=== PATIENT | female | born 1970 | race Caucasian/White ===

== ENCOUNTER 2016-04-02 17:09 | Emergency (ER) | payer BC ==
[~2016-04-02] VITALS: Ht 162.6 cm; Wt 63.8 kg
[2016-04-02 17:33] LABS: MCH 32.9 PG (29.0-34.0); MCHC 34.3 G/DL (30.0-36.0); MCV 95.9 FL (83-99); MEAN PLAT.VOLUME 9.6 uM^3 (9.5-12.4); PLATELET COUNT 220 K/uL (156-360); RBC DIS.WIDTH-CV 12.4 % (11.8-14.6); RBC DIS.WIDTH-SD 42.1 % (39-53); RED BLOOD COUNT 4.17 M/uL (3.80-5.20); WHITE BLOOD COUNT 7.8 K/uL (4.1-10.2)
[2016-04-02 17:41] LABS: CHLORIDE 104 mEq/L (99-109); POTASSIUM 3.6 mEq/L (3.7-5.4); SODIUM 142 mEq/L (136-147)
[2016-04-02 17:43] LABS: GLUCOSE 88 mg/dL (70-99)
[2016-04-02 17:44] LABS: ANION GAP 14 MEQ/L (2-14)
[2016-04-02 17:45] LABS: TOTAL BILIRUBIN 0.3 mg/dL (0.0-1.0)
[2016-04-02 17:46] LABS: ALKALINE PHOSPHATASE 107 IU/L (3-129); SERUM ETHYL ALCOHOL < 10 mg/dL
[2016-04-02 17:47] LABS: GFR ESTIMATE (CALCULATED) > 59 mL/min/
[2016-04-02 17:48] LABS: UREA NITROGEN (BUN) 13 mg/dL (9-23)
[2016-04-02 18:35] LABS: ADD MIUA? YES; BILIRUBIN NEGATIVE; BLOOD MODERATE; COLOR YELLOW ((YELLOW)); GLUCOSE (STRIP) NEGATIVE; KETONES 5; LEUKOCYTES NEGATIVE; NITRITE NEGATIVE; PROTEIN (STRIP) 30; SPECIFIC GRAVITY 1.023 (1.000-1.030); UROBILINOGEN 0.2 MG/DL (0.2-1.0)
[2016-04-02 18:41] LABS: BACTERIA NONE SEEN /HPF; EPITHELIAL CELLS RARE /HPF; HYALINE CASTS 0-5 /LPF; MUCUS 3+ /LPF; RED BLOOD CELLS 0-5 /HPF (0-5); WHITE BLOOD CELLS 0-5 /HPF (0-5)
[2016-04-02 18:58] LABS: AMPHETAMINE NEGATIVE (500 ng/mL); BARBITURATES NEGATIVE (200 ng/mL); BENZODIAZEPINES NEGATIVE (150 ng/mL); COCAINE NEGATIVE (150 ng/mL); INTERNAL CONTROLS VALID? YES; METHADONE NEGATIVE (200 ng/mL); METHAMPHETAMINE NEGATIVE (500 ng/mL); OPIATES (MORPHINE) NEGATIVE (100 ng/mL); OXYCODONE NEGATIVE (100 ng/mL); PHENCYCLIDINE NEGATIVE (25 ng/mL); PROPOXYPHENE NEGATIVE (300 ng/mL); THC CANNABINOIDS NEGATIVE (50 ng/mL); TRICYCLIC ANTIDEPRESSANTS NEGATIVE (300 ng/mL)
[2016-04-02] MEDS ORDERED: ZOFRAN ODT4 MG PO (21:06)
[2016-04-02] MEDS ORDERED: BENTYL20 MG PO (21:06)
[2016-04-02 21:31] VITALS: BP 121/64
[2016-04-03 11:06] LABS: HBSG INDEX 0.14
[2016-04-03 11:07] LABS: HPCA INDEX 0.79
[2016-04-03 11:08] LABS: ANTI-HEPATITIS A VIRUS (IGM) Nonreactive; ANTI-HEPATITIS B CORE (IGM) Nonreactive; HAV INDEX 0.14; HBC IgM INDEX 0.08
== END 2016-04-02 21:32 | disposition home or self-care (01) ==
LOC: EME 17:09
PROVIDERS: Physician Assistant
DX: R11.2 Nausea with vomiting, unspecified (principal); E86.0 Dehydration; E87.6 Hypokalemia; R79.89 Other specified abnormal findings of blood chemistry; I10 Essential (primary) hypertension
CPT/HCPCS: 80053; 80074; 81003; 85027; 99281; 99284; G0480; J2405; J7030

== ENCOUNTER 2017-07-10 02:39 | Emergency (ER) | payer SELFPAY ==
[~2017-07-10] VITALS: Ht 162.6 cm; Wt 62.9 kg
[~2017-07-10 02:39] MED LIST: BENTYL20 MG PO; ZOFRAN ODT4 MG PO
[2017-07-10 03:03] LABS: APPEARANCE CLEAR ((CLEAR)); BILIRUBIN NEGATIVE; BLOOD SMALL; COLOR STRAW ((YELLOW)); GLUCOSE (STRIP) NEGATIVE; KETONES 5; LEUKOCYTES NEGATIVE; NITRITE NEGATIVE; PROTEIN (STRIP) 30; SPECIFIC GRAVITY 1.013 (1.000-1.030); UROBILINOGEN 0.2 MG/DL (0.2-1.0)
[2017-07-10 03:04] LABS: BACTERIA RARE /HPF; EPITHELIAL CELLS RARE /HPF; MUCUS NONE SEEN /LPF; RED BLOOD CELLS 0-5 /HPF (0-5); UCUL ADDED? NO; WHITE BLOOD CELLS 0-5 /HPF (0-5)
[2017-07-10 03:29] LABS: MCH 34.7 PG (29.0-34.0); MCHC 35.1 G/DL (30.0-36.0); MCV 98.7 FL (83-99); PLATELET COUNT 205 K/uL (156-360); RBC DIS.WIDTH-CV 12.1 % (11.8-14.6); RBC DIS.WIDTH-SD 43.4 % (39-53); RED BLOOD COUNT 3.75 M/uL (3.80-5.20)
[2017-07-10 03:37] LABS: ALBUMIN 4.5 g/dL (3.2-4.8); CHLORIDE 107 mEq/L (99-109); POTASSIUM 3.7 mEq/L (3.7-5.4); SODIUM 143 mEq/L (136-147)
[2017-07-10 03:39] LABS: GLUCOSE 106 mg/dL (70-99); TOTAL PROTEIN 8.1 g/dL (6.4-8.3)
[2017-07-10 03:41] LABS: TOTAL BILIRUBIN 0.3 mg/dL (0.0-1.0)
[2017-07-10 03:43] LABS: ALKALINE PHOSPHATASE 85 IU/L (3-129); CREATININE 0.7 mg/dL (0.6-1.3); GFR ESTIMATE (CALCULATED) > 59 mL/min/
[2017-07-10 03:44] LABS: UREA NITROGEN (BUN) 10 mg/dL (9-23)
[2017-07-10 03:45] LABS: AST (GOT) 94 IU/L (2-34)
[2017-07-10 03:46] LABS: ALT (GPT) 81 IU/L (3-49); LIPASE 62 U/L (1.0-51.0)
[2017-07-10 03:52] LABS: QUANTITATIVE HCG < 4.0 MIU/ML
[2017-07-10] MEDS ORDERED: ZOFRAN4 MG PO (07:13)
[2017-07-10] MEDS ORDERED: NORCO 5/3251 TABLET PO (07:13)
[2017-07-10 10:55] VITALS: BP 136/99
== END 2017-07-10 11:05 | disposition home or self-care (01) ==
LOC: EME 02:39
DX: N83.11 Corpus luteum cyst of right ovary (principal); D25.9 Leiomyoma of uterus, unspecified; I10 Essential (primary) hypertension; F17.200 Nicotine dependence, unspecified, uncomplicated; Z87.442 Personal history of urinary calculi; Z88.8 Allergy status to other drugs, medicaments and biological substances
CPT/HCPCS: 74177; 76856; 80053; 81003; 83690; 84702; 85027; 99281; 99285; J1885; J2405; J3010; J7030